=== PATIENT | male | born 1975 | race Caucasian/White ===

== ENCOUNTER 2019-11-23 18:51 | Emergency (ER) | payer BC, SELFPAY ==
[2019-11-23 18:55] VITALS: BP 160/105; PULSE 72; RESP 18; TEMP 36.6; O2SAT 96
[2019-11-23] MEDS: Oxymetazolone 0.05% SPRAY 15 ML BTL NS (20:00)
[2019-11-23 21:12] VITALS: BP 138/77; PULSE 74; RESP 16; O2SAT 96
--- NOTE | 2019-11-24 00:01 | W.ED.GENAD ---
Discharge Plan Disposition Patient Disposition: HOME Condition: Stable Discharge Details Chief Complaint: Epistaxis Clinical Impression: Epistaxis Primary Care Provider: Mason Mead ED Provider: Enid Courtney Home Meds and New Rx's Prescriptions: No Action loratadine [Claritin RediTabs] 10 MG tablet,disintegrating 1 tab PO DAILY PRN RF: 0 hydrochlorothiazide 12.5 MG capsule 12.5 mg PO DAILY RF: 0 losartan 100 MG tablet 100 mg PO QAM Qty: 90 RF: 3 (DME) pen needle, diabetic 1 EACH needle 1 ea Miscellaneous QID Qty: 360 RF: 3 (DME) lancets [OneTouch UltraSoft Lancets] misc See Dose Instructions .ROUTE .MEDSUPPLY Qty: 200 RF: 3 (DME) blood-glucose meter [OneTouch Verio Flex] misc See Dose Instructions .ROUTE .MEDSUPPLY Qty: 1 RF: 3 (DME) OneTouch Verio strip See Dose Instructions .ROUTE .MEDSUPPLY Qty: 100 RF: 8 losartan 100 mg tablet 100 mg PO DAILY Qty: 90 RF: 3 dextrose [Glutose-15] 15 GM/37.5 GM gel 1 tub PO DIRECTED PRNQty: 0 RF: 0 insulin aspart U-100 [Novolog Flexpen U-100 Insulin] 300 UNITS/3 ML insulin pen 10 units Sub-Q 0800,1200,1700 Qty: 3 RF: 1 Lantus Solostar U-100 Insulin 300 UNITS/3 ML insulin pen 25 units Sub-Q HS Qty: 3 RF: 1 (DME) needle (disp) 22 G [Hypodermic Hastings] 1 EACH needle 1 ea Miscellaneous QID Qty: 100 RF: 1 Discharge Instructions Instructions: Nosebleed (ED) Additional Instructions: Avoid picking, scratching or blowing nose. Use nasal saline sprays 2-3 times a day or consider Vaseline in the nose. Ice packs if needed. For any return of bleeding hold pressure immediately use ice packs and then Afrin as discussed. Use humidifier by your bedside and humidify air in your home. Return immediately for any concerns, worsening or alarming symptoms sooner if needed Discharge Data Discharge Date/Time-TO BE ENTERED AT DEPARTURE: 11/23/19 21:15 Medical Decision Making Is a 44-year-old patient presenting for epistaxis. See HPI for specifics of patient's presentation. Patient reports at approximately 6:00 he had a spontaneous nosebleed which is not atypical for him. Patient reports the humidifier in his home broke and he does have dry woodstove in his home. Patient denies any injury or trauma to the nose. Patient reports his left side of his nose is the typical site of bleeding. Patient presents with paper towels packed in his nares. On exam patient removed the paper towels he had packed in his nares a large blood clot was removed from the left nares with removal of his home packing. Patient reports sensation of rebleeding began. Nasal saline and Afrin ordered as well as nasal clamp. Patient reports after nasal clamp placed bleeding sensation improved. No sensation of posterior bleeding. After Afrin patient had no persistent symptoms of bleeding. Patient observed for approximately 1 hour in the ER with no return of bleeding. I consider cauterizing the septum with silver nitrate however I did ask Dr. Cruz to evaluate the patient for this reason. Patient evaluated by Dr. Cruz who feels that there is no indication for silver nitrate at this time as there were several noted areas along the septum but no focal areas of obvious bleeding and her concern of using silver nitrate on a patient who has improved bleeding and no current bleeding was at this could potentially elicit rebleeding. She recommends conservative treatments. She does not feel labs are required at this time. Patient is notably hemodynamically stable. Patient has been observed in the emergency room for a period of approximately 1 hour and has had no return of bleeding. Encourage moistening nares, humidifying air in home. Recommended if rebleeding occurs to again use Afrin and nasal clamping which were both provided to the patient. Patient feels comfortable with discharge home at this time. The patient was stable and requested discharge. Prior to discharge, my usual and customary return precautions were reviewed with the patient - this included follow-up instructions and reasons to return to the Emergency Department if conditions worsens, does not improve as expected, or other new concerns arise. [facility] General Date/Time Provider Initiated Documentation: 11/23/19 19:24. HPI Narrative: 44-year-old patient presenting for complaints of epistaxis. Patient reports nosebleed began around 6:00 this evening. Patient reports he was is very familiar with nosebleeds has had several since childhood. Patient denies any obvious injury or trauma this evening. Patient does report he has a wood stove in his home and his humidifier broke approximately 1 week ago. Patient denies any nasal trauma, picking or scratching at the nose prior to onset of bleeding. Patient reports he tried pressure at home without relief of bleeding. Patient does believe the bleeding stopped on his way to the emergency room. Patient presents with tissue packed in both nares. Patient does report initially he felt that blood was draining posteriorly down his throat. Patient reports he has no sensation of bleeding at this time. Patient denies any liver problems, known bleeding disorders. Patient's medical history includes diabetes, high blood pressure and allergies. Denies any recent upper respiratory symptoms. Denies any dizziness, weakness or fatigue at this time. Denies shortness of breath. Related Data Home Medications Medication Instructions Recorded Confirmed loratadine [Claritin RediTabs] 1 tab PO DAILY PRN tab-cap 01/07/13 11/23/19 Lantus Solostar U-100 Insulin 25 units SUB-Q HS #3 syr 05/29/16 11/23/19 dextrose [Glutose-15] 1 tub PO DIRECTED PRN #0 tube 05/29/16 11/23/19 insulin aspart U-100 [Novolog 10 units SUB-Q 0800,1200,1700 #3 05/29/16 11/23/19 Flexpen U-100 Insulin] syr needle (disp) 22 G [Hypodermic #100 dis.needle 05/29/16 Hastings] hydrochlorothiazide 12.5 mg PO DAILY tab-cap 06/06/16 11/23/19 losartan 100 mg PO QAM #90 tab 06/05/17 pen needle, diabetic #360 pack 08/13/17 blood sugar diagnostic #100 each 11/04/18 blood-glucose meter #1 each 11/04/18 lancets #200 each 11/04/18 losartan 100 mg tablet 100 mg PO DAILY #90 tab 07/02/19 11/23/19 Previous Rx's Medication Instructions Recorded Lantus Solostar U-100 Insulin 25 units SUB-Q HS #3 syr 05/29/16 dextrose [Glutose-15] 1 tub PO DIRECTED PRN #0 tube 05/29/16 insulin aspart U-100 [Novolog 10 units SUB-Q 0800,1200,1700 #3 05/29/16 Flexpen U-100 Insulin] syr needle (disp) 22 G [Hypodermic #100 dis.needle 05/29/16 Hastings] pen needle, diabetic #360 pack 08/13/17 blood sugar diagnostic #100 each 11/04/18 blood-glucose meter #1 each 11/04/18 lancets #200 each 11/04/18 losartan 100 mg tablet 100 mg PO DAILY #90 tab 07/02/19 Allergies Allergy/AdvReac Type Severity Reaction Status Date / Time lisinopril AdvReac Intermediate COUGH Unverified 11/23/19 18:58 ENVIRONMENTAL ALLERGIES Allergy Uncoded 11/23/19 18:58 General Stated Complaint: Epistaxis TEMITOPE: 4 Review of Systems All systems reviewed & are unremarkable except as noted in HPI and below Constitutional Constitutional: Denies chills, Denies fatigue, Denies fever(s), Denies headache(s), Denies lethargy and Denies malaise ENT Ears, Nose, Mouth, and Throat: Denies bleeding gums, Denies change in voice, Denies headache(s), Reports epistaxis, Denies mouth pain, Denies nasal trauma, Denies sore throat and Denies throat swelling Cardiovascular Cardiovascular: Denies dyspnea and Denies dyspnea on exertion Respiratory Respiratory: Denies cough, Denies dyspnea and Denies dyspnea on exertion Gastrointestinal Gastrointestinal: Denies abdominal pain, Denies nausea and Denies vomiting Neurologic Neurologic: Denies headache(s) Endocrine Endocrine: Denies fatigue Hematologic/Lymphatic Hematologic/Lymphatic: Denies easy bleeding and Denies easy bruising Allergic/Immunologic Allergic/Immunologic: Denies throat swelling [facility] Social History Smoking/Tobacco Use Status: Current every day Alcohol Intake: current Alcohol Intake frequency: holidays/special occasions only Drug use: Never Do you feel safe at home: Yes Do you feel safe in your relationship?: Yes Exam Narrative Exam Narrative: CONST: Healthy appearing patient, in no acute distress. Well hydrated. Alert and oriented. HENMT: Head nomocephalic, normal to inspection. Atraumatic. Hearing grossly normal. After initial nasal packing from home was removed a large blood clot was removed with paper towels in place in left nares. Patient had some immediate return of bleeding and clamp was placed on nose which controlled immediately. Reevaluation of the patient after Afrin and bleeding controlled reveals several punctate areas on the nasal septum noted in the left nares with no focal site of bleeding. EYES: General normal appearance. Alignment normal. Eyelids normal. Conjunctiva normal. NECK: Normal visual inspection. FROM. Trachea midline. No Midline tenderness. Posterior pharynx appears normal. SKIN: Normal. Dry. No rashes. NEURO: Alert and awake. Speech clear. PSYCH: Normal affect. Cooperative. Course Vital Signs Vital signs: Vital Signs Temperature 36.6 C 11/23/19 18:55 Pulse 72 11/23/19 18:55 Respiratory Rate 18 11/23/19 18:55 Blood Pressure 160/105 H 11/23/19 18:55 Pulse Oximetry 96 11/23/19 18:55 Temperature 36.6 C 11/23/19 18:55 Temperature Source Skin 11/23/19 18:55 Pulse 74 11/23/19 21:12 Respiratory Rate 16 11/23/19 21:12 Respiratory Effort Non-Labored 11/23/19 18:57 Blood Pressure 138/77 11/23/19 21:12 Blood Pressure Position Sitting 11/23/19 18:55 Pulse Oximetry 96 11/23/19 21:12 Oxygen Delivery Method Room Air 11/23/19 18:55 Oxygen Flow Rate 0 11/23/19 18:55 Pain Level 0 11/23/19 21:12 Lab/Test Results Lab/Test Results: Laboratory Tests Range/Units 11/23/19 11/23/19 11/23/19 19:33 19:33 19:33 WBC Cancelled RBC Cancelled Hgb Cancelled Hct Cancelled MCV Cancelled MCH Cancelled MCHC Cancelled RDW Cancelled Plt Count Cancelled MPV Cancelled Immature Gran % Cancelled Neutrophils % Cancelled Band Neutrophils % Cancelled Lymphocytes % Cancelled Atypical Lymphs % Cancelled Monocytes % Cancelled Eosinophils % Cancelled Basophils % Cancelled Metamyelocytes % Cancelled Myelocytes % Cancelled Promyelocytes % Cancelled Absolute Neutrophils Cancelled Absolute Lymphocytes Cancelled Absolute Monocytes Cancelled Absolute Eosinophils Cancelled Absolute Basophils Cancelled Nucleated RBCs Cancelled Differential Comment Cancelled Other Cell Type Cancelled RBC Morphology Cancelled Polychromasia Cancelled Hypochromasia Cancelled Poikilocytosis Cancelled Basophilic Stippling Cancelled Anisocytosis Cancelled Microcytosis Cancelled Macrocytosis Cancelled Spherocytes Cancelled Target Cells Cancelled Tear Drop Cells Cancelled Ovalocytes Cancelled Stomatocytes Cancelled Marshall-Standard Bodies Cancelled Usha Cells Cancelled Acanthocytes (Spur) Cancelled Schistocytes Cancelled PT Cancelled INR Cancelled APTT Cancelled Sodium Cancelled Potassium Cancelled Chloride Cancelled Carbon Dioxide Cancelled Anion Gap Cancelled BUN Cancelled Creatinine Cancelled Estimated GFR/1.73 m2 Cancelled Glucose Cancelled Calcium Cancelled Total Bilirubin Cancelled AST Cancelled ALT Cancelled Alkaline Phosphatase Cancelled Total Protein Cancelled Albumin Cancelled
== END 2019-11-23 21:15 | disposition home or self-care (01) ==
PROVIDERS: Emergency Provider Physician Assistant; PCP Emergency Medicine
DX: R04.0 Epistaxis (principal)
CPT/HCPCS: 80053; 99282; 85025; 85610; 85730

== ENCOUNTER 2020-02-19 10:19 | Outpatient (CLI) | payer BC, SELFPAY ==
[2020-02-20 14:53] LABS: COVID-19 RT-PCR Result NEGATIVE (Negative)
== END 2020-02-19 10:39 ==
PROVIDERS: PCP Emergency Medicine; Visit Provider Emergency Medicine
DX: B34.9 Viral infection, unspecified (principal)
CPT/HCPCS: U0003

== ENCOUNTER 2022-09-25 17:50 | Outpatient (REF) | payer BC, SELFPAY ==
[2022-09-25 13:10] LABS: COMMENT (LAB VIEW ONLY) < 13.00 mg/dL
== END 2022-09-25 17:51 | disposition home or self-care (01) ==
LOC: LBN 17:50
PROVIDERS: PCP Family Medicine; Visit Provider Family Medicine
DX: E11.9 Type 2 diabetes mellitus without complications (principal)
CPT/HCPCS: 82043; 82570

== ENCOUNTER 2024-06-24 22:55 | Outpatient (REF) | payer BC, SELFPAY ==
[2024-06-24 22:03] LABS: COMMENT (LAB VIEW ONLY) 20.87 mg/dL; Microalb ug/mg Crea 85.3 ug/mg Cr
== END 2024-06-24 22:56 | disposition home or self-care (01) ==
LOC: LBN 22:55
PROVIDERS: PCP Family Medicine; Visit Provider Nurse Practitioner Family
DX: E11.9 Type 2 diabetes mellitus without complications (principal); Z12.5 Encounter for screening for malignant neoplasm of prostate; I10 Essential (primary) hypertension; Z13.220 Encounter for screening for lipoid disorders; W57.XXXA Bitten or stung by nonvenomous insect and other nonvenomous arthropods, initial encounter; Z12.11 Encounter for screening for malignant neoplasm of colon; Z00.00 Encounter for general adult medical examination without abnormal findings; E78.5 Hyperlipidemia, unspecified; E10.10 Type 1 diabetes mellitus with ketoacidosis without coma
CPT/HCPCS: 82043; 82570

== ENCOUNTER 2024-10-06 02:28 | Outpatient (CLI) | payer BC, SELFPAY ==
[2024-10-06 12:49] LABS: Calculated LDL 94 mg/dL (<100); Cholesterol 234 mg/dL (<200); Estimated GFR 92.84 (mL/min/1.73m2); HDL Cholesterol 122 mg/dL (40-60); Potassium 3.9 mmol/L (3.5-5.1); Triglyceride 92 mg/dL (<150)
[2024-10-06 20:08] LABS: PSA, Screening 1.8 ng/mL (<=2.5)
[2024-10-07 10:00] LABS: Lyme Ab w Rflx to Lyme Confirm Negative (Negative)
[2024-10-08 23:17] LABS: Anaplasma phagocytophilum Negative (Negative); B. miyamotoi PCR Negative (Negative); Babesia divergens/MO-1 Negative (Negative); Babesia duncani Negative (Negative); Babesia microti Negative (Negative); Ehrlichia chaffeensis Negative (Negative); Ehrlichia ewingii/canis Negative (Negative); Ehrlichia muris eauclairensis Negative (Negative)
== END 2024-10-06 02:29 | disposition home or self-care (01) ==
LOC: LOS 02:28
PROVIDERS: PCP Family Medicine; Visit Provider Nurse Practitioner Family
DX: Z13.220 Encounter for screening for lipoid disorders (principal); I10 Essential (primary) hypertension; Z12.5 Encounter for screening for malignant neoplasm of prostate; W57.XXXA Bitten or stung by nonvenomous insect and other nonvenomous arthropods, initial encounter
CPT/HCPCS: 36415; 80061; 84153; 87798; 82565; 84132; 86618

== ENCOUNTER 2024-10-14 03:25 | Outpatient (CLI) | payer BC, SELFPAY ==
--- NOTE | 2024-10-14 06:45 | DI.MRI_ITS ---
Exam(s) MR UPPER JOINT RT WO EXAM: MR UPPER JOINT RT WO CLINICAL HISTORY: Worsening RT SHOULDER pain/loss of ROM,M25.511. TECHNIQUE: Multiplanar multisequence MRI was performed. COMPARISON: No exams were available for comparison FINDINGS: BONES: There is no fracture or contusion pattern. JOINTS: There are mild degenerative changes seen at the acromioclavicular joint. The glenohumeral omer int is normal. TENDONS: Supraspinatus: Unremarkable. Infraspinatus: Unremarkable. Subscapularis: There is tendinosis of the subscapularis tendon. Teres Minor: Unremarkable. Biceps and [place]: Unremarkable. MUSCLES: Unremarkable. GLENOID LABRUM: Unremarkable on this noncontrast examination. SOFT TISSUES: Unremarkable. LIGAMENTS: Unremarkable. OTHER: There is a tiny amount of fluid in the subacromial subdeltoid bursa. IMPRESSION: 1. No evidence of a rotator cuff tear. 2. Subscapularis tendinosis. 3. Mild degenerative changes at the acromioclavicular joint. 4. Tiny amount of fluid in the subacromial subdeltoid bursa. DATA REPOSITORY:
== END 2024-10-14 03:45 ==
LOC: DI 03:25
PROVIDERS: PCP Nurse Practitioner Family; Visit Provider Nurse Practitioner Family
DX: M25.511 Pain in right shoulder (principal)
CPT/HCPCS: 73221

== ENCOUNTER 2025-04-13 14:19 | Emergency (ER) | payer BC, SELFPAY ==
[2025-04-13 14:31] VITALS: BP 192/102; PULSE 86; RESP 20; TEMP 36.7; O2SAT 95
[2025-04-13 15:04] LABS: Abs Immature Grans 0.02 10^3/uL (0.0-0.06); HCT 41.1 % (40.0-50.0); HGB 14.7 g/dL (13.5-17.5); Immature Grans % 0.3 %; MCH 32.2 pg (27.0-33.0); MCHC 35.8 % (32.0-36.0); MCV 90 fL (80-95); MPV 8.7 fL (8.0-11.0); Platelet Count 205 10^3/uL (130-400); RBC 4.57 10^6/uL (4.36-5.78); RDW 12.3 % (11.8-14.1); RDW-SD 40.1 fL; WBC 6.07 10^3/uL (4.4-10.8)
[2025-04-13 15:11] LABS: Glucose Negative (Negative)
--- NOTE | 2025-04-13 15:22 | W.ED.GENAD ---
Discharge Plan Disposition Patient Disposition: Home Condition: Stable Discharge Details Clinical Impression: Nausea & vomiting Primary Care Provider: Edson Pimentel ED Provider: Muriel Juan Home Meds and New Rx's Prescriptions: New ondansetron 4 mg tablet,disintegrating 4 mg PO Q8H PRNQty: 10 0RF No Action (DME) pen needle, diabetic [Lite Touch Insulin Pen King[place]] 31 gauge x 3/16 needle See Rx Instructions .ROUTE .MEDSUPPLY Qty: 300 3RF Rx Instructions: inject 3 x/day atorvastatin 10 mg tablet 10 mg PO QPM Qty: 90 3RF losartan 100 mg tablet 100 mg PO DAILY Qty: 90 3RF tadalafil 5 mg tablet 5 - 20 mg PO DAILY PRN (Reason: sexual activity) Qty: 30 5RF (DME) pen needle, diabetic 1 EACH needle 1 ea Miscellaneous QID Qty: 360 3RF (DME) lancets [OneTouch UltraSoft Lancets] misc See Dose Instructions .ROUTE .MEDSUPPLY Qty: 200 3RF Dose Instruction: As directed Rx Instructions: bid (DME) blood-glucose meter [OneTouch Verio Flex meter] misc See Dose Instructions .ROUTE .MEDSUPPLY Qty: 1 3RF Dose Instruction: As directed Rx Instructions: bid (DME) OneTouch Verio test strips Strip See Dose Instructions .ROUTE .MEDSUPPLY Qty: 100 8RF Dose Instruction: As directed Rx Instructions: bid insulin lispro [Humalog KwikPen Insulin] 100 unit/mL insulin pen 10 unit subcut TID Qty: 45 3RF insulin degludec [Tresiba FlexTouch U-100] 100 unit/mL (3 mL) insulin pen 18 unit subcut DAILY Qty: 15 5RF hydrochlorothiazide 25 mg tablet 25 mg PO DAILY Qty: 90 3RF Discharge Instructions Instructions: Nausea and Vomiting, Adult ED Additional Instructions: As discussed you had no ketones in your urine today. Your blood glucose was 181 and although higher than your normal you are not in DKA based on workup today. Nevertheless I recommend you closely follow-up with your primary care doctor. Stay well-hydrated and a prescription for nausea medication has been sent to your preferred pharmacy that you can take as needed. In the meantime if you do get worse or develop any new or concerning symptoms please return to the emergency department immediately for reevaluation. HPI General Date/Time Provider Initiated Documentation: 04/13/25 14:51. HPI Narrative: The patient is a 50-year-old male with a history of type 1 diabetes who comes the emergency department for nausea and vomiting. The patient reports symptoms started yesterday. Denies eating unusual food or any known sick contacts. Denies noticing blood in his vomit. Denies any recent antibiotic intake. Denies any recent travel or camping. He reports he had initially gone to the local urgent care but because of his history of type 1 diabetes he was told to go to the emergency department. Reports that when he is sick his blood glucose does go up. Reports normally blood glucose is in the 130s but it has been reading in the 200s. Denies changes in bowel habits with this. Denies abdominal pain. Denies fevers or chills. Reports he has been compliant with his diabetic medication regimen. Related Data Home Medications ?Medication ?Instructions ?Recorded ?Confirmed pen needle, diabetic 31 gauge x ##360 08/13/17 04/13/2510/09 blood-glucose meter (OneTouch #1 ea 11/04/18 04/13/25 Verio Flex Meter) lancets (OneTouch UltraSoft #200 ea 11/04/18 04/13/25 Lancets) blood sugar diagnostic (OneTouch #100 ea 03/30/21 04/13/25 Verio test strips) pen needle, diabetic 31 gauge x #300 ea 09/20/21 04/13/2512/20 (Lite Touch Insulin Pen Kingman) insulin lispro 100 unit/mL 10 unit (0.1 mL) subcut TID #45 mL 03/30/24 04/13/25 subcutaneous pen (Humalog KwikPen (U-100) Insulin) atorvastatin 10 mg tablet 10 mg PO QPM #90 tabs 06/24/24 04/13/25 losartan 100 mg tablet 100 mg PO DAILY #90 tabs 06/24/24 04/13/25 tadalafil 5 mg tablet 5 - 20 mg (1 - 4 x 5 mg) PO DAILY 06/24/24 04/13/25 PRN sexual activity #30 tabs insulin degludec 100 unit/mL (3 18 unit (0.18 mL) subcut DAILY #15 10/03/24 04/13/25 mL) subcutaneous pen (Tresiba mL FlexTouch U-100 insulin) hydrochlorothiazide 25 mg tablet 25 mg PO DAILY #90 tabs 10/14/24 04/13/25 ondansetron 4 mg disintegrating 4 mg PO Q8H PRN #10 tabs 04/13/25 tablet Previous Rx's ?Medication ?Instructions ?Recorded pen needle, diabetic 31 gauge x ##360 08/13/1710/09 blood-glucose meter (OneTouch #1 ea 11/04/18 Verio Flex Meter) lancets (OneTouch UltraSoft #200 ea 11/04/18 Lancets) blood sugar diagnostic (OneTouch #100 ea 03/30/21 Verio test strips) pen needle, diabetic 31 gauge x #300 ea 09/20/2112/20 (Lite Touch Insulin Pen Kingman) insulin lispro 100 unit/mL 10 unit (0.1 mL) subcut TID #45 mL 03/30/24 subcutaneous pen (Humalog KwikPen (U-100) Insulin) atorvastatin 10 mg tablet 10 mg PO QPM #90 tabs 06/24/24 losartan 100 mg tablet 100 mg PO DAILY #90 tabs 06/24/24 tadalafil 5 mg tablet 5 - 20 mg (1 - 4 x 5 mg) PO DAILY 06/24/24 PRN sexual activity #30 tabs insulin degludec 100 unit/mL (3 18 unit (0.18 mL) subcut DAILY #15 10/03/24 mL) subcutaneous pen (Tresiba mL FlexTouch U-100 insulin) hydrochlorothiazide 25 mg tablet 25 mg PO DAILY #90 tabs 10/14/24 ondansetron 4 mg disintegrating 4 mg PO Q8H PRN #10 tabs 04/13/25 tablet Allergies Allergy/AdvReac Type Severity Reaction Status Date / Time lisinopril AdvReac Intermediate COUGH Verified 04/13/25 12:58 General Stated Complaint: Nausea/Vomit/Diar TEMITOPE: 3 Review of Systems Narrative: Review of systems are negative except as mentioned. Exam Narrative Exam Narrative: General appearance: The patient is alert, has no immediate need for airway protection and no signs of toxicity. HEENT: Oral mucosal membranes are moist. Respiratory: There are no retractions. Lungs are clear to auscultation. Cardiovascular: Regular in rate and rhythm. Radial pulses are intact and equal. Gastrointestinal: The abdomen is soft and nondistended with normal bowel sounds. Nontender to palpation throughout. Neurological: The patient is alert, awake and oriented x 3. Skin: Warm and dry. Back: No CVA tenderness is noted to palpation bilaterally. Course Vital Signs Vital signs: Vital Signs Temperature 36.7 C 04/13/25 14:31 Pulse 86 04/13/25 14:31 Respiratory Rate 20 04/13/25 14:31 Blood Pressure 192/102 H 04/13/25 14:31 Pulse Oximetry 95 04/13/25 14:31 Temperature 36.7 C 04/13/25 14:31 Temperature Source Oral 04/13/25 14:31 Pulse 86 04/13/25 14:31 Respiratory Rate 20 04/13/25 14:31 Blood Pressure 192/102 H 04/13/25 14:31 Blood Pressure Position Sitting 04/13/25 14:31 Pulse Oximetry 95 04/13/25 14:31 Oxygen Delivery Method Room Air 04/13/25 14:31 Oxygen Flow Rate 0 04/13/25 14:31 Lab/Test Results Lab/Test Results: Laboratory Tests Range/Units 04/13/25 04/13/25 14:44 14:48 WBC (4.4-10.8) 10^3/uL 6.07 RBC (4.36-5.78) 10^6/uL 4.57 Hgb (13.5-17.5) g/dL 14.7 Hct (40.0-50.0) % 41.1 MCV (80-95) fL 90 MCH (27.0-33.0) pg 32.2 MCHC (32.0-36.0) % 35.8 RDW (11.8-14.1) % 12.3 Plt Count (130-400) 10^3/uL 205 MPV (8.0-11.0) fL 8.7 Immature Gran % % 0.3 Neutrophils % % 58.4 Lymphocytes % % 27.8 Monocytes % % 10.5 Eosinophils % % 2.5 Basophils % % 0.5 Nucleated RBC % (0.0-0.3) % 0.0 Absolute Neutrophils (1.2-6.7) 10^3/uL 3.54 Absolute Lymphocytes (1.2-3.4) 10^3/uL 1.69 Absolute Monocytes (0.1-0.8) 10^3/uL 0.64 Absolute Eosinophils (0.0-0.7) 10^3/uL 0.15 Absolute Basophils (0.0-0.2) 10^3/uL 0.03 Urine Color (Yellow) Other Urine Clarity (Clear) Clear Urine pH (5-8) 6.0 Ur Specific Inez (1.005-1.025) <= 1.005 Urine Protein (Neg-Trace) mg/dL Negative Urine Ketones (Negative) mg/dL Negative Urine Blood (Negative) Negative Urine Nitrite (Negative) Negative Urine Bilirubin (Negative) Negative Urine Urobilinogen (Up to 0.2) mg/dL 0.2 Ur Leukocyte Esterase (Negative) Negative Urine Glucose (Negative) mg/dL Negative Medical Decision Making I am checking the patient's blood work and urine. Patient reports he is no longer feeling nauseous. I will hold off on giving him nausea medication. Blood counts are back and they are unremarkable. Chemistry is resulted and bicarb is unremarkable. Blood glucose is 181. Overall clinical picture is less suspicious for DKA. I have updated the patient on workup result and he is quite reassured. Again he reports that he feels back to baseline therefore he is to be discharged shortly. I have sent a prescription for Zofran to his pharmacy regardless. He is asked to keep a close eye on his blood glucose in the meantime and to follow-up with his primary care doctor. I told him if he does get worse or develop any new or concerning symptoms return to the emergency department immediately otherwise follow-up in outpatient basis. 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 Elevated LFTs (02/05/14) Gastroesophageal reflux disease Heart murmur pulmonic stenosis Migraine headache without aura Severe obstructive sleep apnea PSG January 2021 AHI 54 -> 90 in REM; O2 sat tiesha 60% and 91min with O2 sat <88% Surgical History Status post left hip replacement Family History Mother Headache Other Hypertension Stroke Social History (Updated 06/25/24 @ 09:23 by Malina May) Smoking/Tobacco Use Status: Current every day Tobacco Type: smokeless tobacco Tobacco: How many years used: 30 Smokeless tobacco user: chewing tobacco Quit status: considering quitting Second Hand Exposure: Yes Smoking risk assessment performed?: Yes Alcohol Intake: current Alcohol Intake frequency: a few times a week Alcohol type: hard liquor Drug use: Never Substance use type: does not use Counseling given: No Caregiver/Support person: Yes Household members: spouse Housing: house Number of Children: 0 Communication Needs: None current occupation: stamping operator rabies Pets and animals: Yes (3 dogs) Pets and animals: dog(s) Sexually active: Yes Do you think of yourself as: straight/heterosexual Current gender identity: male What is your relationship status?: How often do you talk on the phone with friends or family?: three or more times per week How often do you get together with friends or relatives?: twice per week How often do you attend mu-ism or islam services?: decline to answer Do you belong to any clubs or organized social groups?: yes Panel score (0-1 are the most socially isolated patients): 3 What type of physical activity do you participate in: walking Duration: > 90 minutes/day Frequency: 3-4 times per week Yvonne/Yazidi: Nondenominational Special yvonne needs: No Seatbelt use: always Helmet use: Yes Helmet use: always Drive intox or ride w/intox hazmat tanker driver: No Do you feel safe at home: Yes Do you feel safe in your relationship?: Yes
[2025-04-13 15:32] LABS: ALT 51 U/L (16-63); AST 45 U/L (15-37); Albumin 4.0 g/dL (3.4-5.0); Alkaline Phosphatase 78 U/L (46-116); Anion Gap 11.6 mmol/L (3-11); BUN 5 mg/dL (7-18); Bilirubin, Total 0.5 mg/dL (0.2-1.0); CO2 27.4 mmol/L (21.0-32.0); Calcium 8.4 mg/dL (8.5-10.1); Chloride 101 mmol/L (98-107); Estimated GFR 118.34 (mL/min/1.73m2); Glucose 181 mg/dL (74-106); Potassium 3.4 mmol/L (3.5-5.1); Sodium 140 mmol/L (136-145); Total Protein 7.4 g/dL (6.4-8.2)
[2025-04-13 15:49] VITALS: BP 184/96; PULSE 89; RESP 18; O2SAT 95
== END 2025-04-13 15:54 | disposition home or self-care (01) ==
PROVIDERS: Emergency Provider Emergency Medicine; PCP Nurse Practitioner Family
DX: R11.2 Nausea with vomiting, unspecified (principal)
CPT/HCPCS: 99283 ×2; 80053; 81003; 85025

== ENCOUNTER → 2025-08-16 02:22 | Outpatient (CLI) | payer BC, SELFPAY ==
--- NOTE | 2025-08-16 09:30 | DI.US_ITS ---
APPROVED REPORT EXAM: Comprehensive 2D, Doppler, and color-flow Echocardiogram Patient Location: Out-Patient Machine [employer]oth Measurer: Moira Marie RDCS (AE) Indications: Heart murmur Other Information Study Quality: Good Conclusion Normal left ventricular wall thickness and chamber size. Ejection fraction is 60%. Wall motion is normal Normal right ventricular size and function Both atria are normal in size There are no structural valvular abnormalities Mild aortic regurgitation Ascending aorta measures 3.6 cm Wall motion Left Ventricle The left ventricle is normal size. The left ventricular systolic function is normal. The left ventricular ejection fraction is within the normal range. There is normal left ventricular wall thickness. There is normal LV segmental wall motion. There is no ventricular septal defect visualized. LVEF is 60%. Right Ventricle The right ventricle is normal size. The right ventricular systolic function is normal. Atria The left atrium size is normal. The right atrium size is normal. The interatrial septum is intact with no evidence for an atrial septal defect. Aortic Valve The aortic valve is normal in structure. Aortic valve is trileaflet. There is no aortic valvular stenosis. Mild aortic regurgitation. Mitral Valve The mitral valve is normal in structure. No evidence of mitral valve stenosis. Trace mitral regurgitation. Tricuspid Valve The tricuspid valve is normal in structure. There is no tricuspid valve stenosis. Trace tricuspid regurgitation. The RVSP is 26.0mmHg. Pulmonic Valve The pulmonary valve is normal in structure. There is no pulmonic valvular stenosis. Trace pulmonic regurgitation. Great Vessels The aortic root is normal in size. The ascending aorta is mildly dilated. Aortic arch is normal in caliber. IVC is normal in size and collapses >50% with inspiration. Pericardium There is no pericardial effusion. 2D Dimensions IVSD d PLAX 1.00 cm M: 0.6-1.2 Ao Root d 3.27 cm M: 3.1 - 3.7 LVPW d PLAX 1.00 cm M: 0.6 - 1.2 Ao Asc Diam d 3.60 cm M: 2.6 - 3.4 LVID d PLAX 4.91 cm M: 4.2 - 5.8 RVOT Diameter 2.57 cm LVDs 3.30 cm M: 2.5 - 4.0 LV EF Teichholz 61.8 % FS 33.30 % LV EDV (Teich) 113.6 mL LV ESV (Teich) 43.4 mL M-Mode TAPSE 2.23 cm (M/F) >1.7 Auto EF LV EDV A4C 108.5 mL LV EDV A2C 105.1 mL LV EDV BP 107.6 mL LV ESV A4C 44.6 mL LV ESV A2C 44.4 mL LV ESV BP 44.2 mL LVEF(%) A4C 58.9 % LVEF(%) A2C 57.7 % LVEF(%) BP 58.9 % LV SV A4C 64.0 ml LV SV A2C 60.7 ml LV SV BP 63.4 ml LV CO A4C 3.4 L/min LV CO A2C 3.4 L/min LV CO BP 3.4 L/min HR A4C 53.32 BPM HR A2C 55.73 BPM LV EDV Index (BP) LA Volume LA Length A4C 4.9 cm LA Length A2C 5.6 cm LA Area A4C s 17.68 cm2 LA Area A2C s 15.55 cm2 LA Vol A4C A-L 53.87 mL LA Vol A2C A-L 36.95 mL LA Vol Biplane A-L 47.4 mL LA Vol/BSA A4C A-L LA Vol/BSA A2C A-L LA Vol/BSA BP A-L 25.9 mL/m2 LA Vol A4C MOD 49.6 mL LA Vol A2C MOD 35.4 mL LA Vol BP MOD 44.4 mL RA Volume RA Area A4C 11.6 cm2 RA ESV A4C (A-L) 22.6mL RA Vol/BSA A4C A-L RA Length A4C 5.1 cm RA ESV A4C (MOD) 21.3mL LV Diastology MV E' medial 0.087 (>0.07 m/s) MV E Vmax 0.85 (0.4-1.3 m/s) MV E/E' MED 9.76 (<14) MV A Vmax 0.85 (0.4-1.3 m/s) MV E' lateral 0.109 (>0.1 m/s) E/A Ratio 1.0 MV E/E' LAT 7.76 (<14) MV E' Average 0.098 m/s MV E/E'(average) 8.65 Aortic Valve AoV Vmax 1.50 m/s LVOT Vmax 1.15 m/s AoV Peak Grad 29.3 mmHg LVOT Peak Grad 5.3 mmHg AoV Area (Vmax) 2.43 cm2 LVOT VTI 0.234 m AoV VTI 0.318 m LVOT Mean Grad 2.6 mmHg AoV Mean Erick. 0.96 m/s LVOT SV 74.29 mL AoV Mean Grad 4.4 mmHg LVOT Diam s 2.00 cm AoV Area (VTI) 2.34 cm2 AV Regurg Peak Gr. 8.98 mmHg Velocity Ratio 0.77 AR Decel Concho 1.3m/sec2 AR DT 2684 msec AR PHT 778 msec AR Vmax 3.52 m/s Mitral Valve MV DT 217 (160-240 msec) MV Vmax TIPS 0.88 m/s MV Mean Grad 1.1 (<2mmHg) MV VTI 0.321 m Pulmonary Valve PV Vmax 1.72 (0.5-1.5 m/s) RVOT Vmax 0.58 m/s PV Peak Grad 11.8 mmHg RVOT Peak Gr. 1.4 mmHg PV Mean Erick 1.16 m/s RVOT VTI 0.159 m PV Mean Grad 6.5 mmHg RVOT Diam s 2.57 cm (M/F) 2.1-3.5 PVA 1.76 cm2 RVOT Mean Gr. 0.9 mmHg Tricuspid Valve RA Pressure 3.00 mmHg TR Vmax 2.40 m/s TV S' 0.13 m/s TR Peak Grad 23.0 mmHg RVSP (TR) 26.0 mmHg
== END ==
LOC: DI 02:22
PROVIDERS: PCP Nurse Practitioner Family; Visit Provider Nurse Practitioner Family
DX: R01.1 Cardiac murmur, unspecified (principal); I35.1 Nonrheumatic aortic (valve) insufficiency
CPT/HCPCS: 93306